=== PATIENT | male | born 1970 | race Caucasian/White ===

== ENCOUNTER 2019-05-01 00:59 | Emergency (ER) | payer MEDICAID, OTHER ==
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
[2019-05-01 03:05] VITALS: BP 134/89; TEMP 97.9; O2SAT 97
== END 2019-05-01 03:05 | disposition home or self-care (01) ==
LOC: ER 00:59
DX: S61.216A Laceration without foreign body of right little finger without damage to nail, initial encounter (principal); T14.8XXA Other injury of unspecified body region, initial encounter; M54.2 Cervicalgia; M25.519 Pain in unspecified shoulder; M79.89 Other specified soft tissue disorders; I10 Essential (primary) hypertension; E11.9 Type 2 diabetes mellitus without complications; F32.9 Major depressive disorder, single episode, unspecified; Y04.0XXA Assault by unarmed brawl or fight, initial encounter; Y07.499 Other family member, perpetrator of maltreatment and neglect; Z87.891 Personal history of nicotine dependence; Z79.4 Long term (current) use of insulin; Z79.899 Other long term (current) drug therapy; Z88.8 Allergy status to other drugs, medicaments and biological substances; Z88.2 Allergy status to sulfonamides

== ENCOUNTER → 2019-06-08 | Outpatient (CLI) | payer OTHER | LOC: LAB.O 12:12 | PROVIDERS: ATTEND Nurse Practitioner Family | DX: E11.9 Type 2 diabetes mellitus without complications (principal) ==

== ENCOUNTER → 2020-11-18 | Outpatient (CLI) | payer OTHER | LOC: LAB.O 11:41 | PROVIDERS: ATTEND Nurse Practitioner Family | DX: I10 Essential (primary) hypertension (principal); E11.9 Type 2 diabetes mellitus without complications ==